=== PATIENT | female | born 1985 | race Hispanic/Latino ===

== ENCOUNTER → 2020-10-12 | Outpatient (CLI) | payer OTHER ==
[~2020-10-12] MED LIST: AMOXICILLIN500 M1 PO; COVID-19 VACC, MRNA(MODERNA)/PF 100 MCG/0.5 ML VIAL IM ONE; IBUPROFEN400 MG PO; NORCO 5-325 TA1 EACH PO; VALIUM5 MG PO
== END ==
LOC: VACCPMC 18:44
DX: Z23 Encounter for immunization (principal); Z20.822 Contact with and (suspected) exposure to COVID-19

== ENCOUNTER → 2020-11-11 | Outpatient (CLI) | payer OTHER | END | DRG 951 | LOC: VACCPMC 07:33 | DX: Z23 Encounter for immunization (principal); Z20.822 Contact with and (suspected) exposure to COVID-19 | CPT/HCPCS: 0012A; 91301 ==